=== PATIENT | male | born 1975 | race Caucasian/White ===

== ENCOUNTER → 2016-12-22 | Outpatient (REF) | payer OTHER | LOC: M LAB REF 20:05 | PROVIDERS: ATTEND Physician Assistant | DX: J02.9 Acute pharyngitis, unspecified (principal) ==

== ENCOUNTER → 2017-05-28 | Outpatient (REF) | payer OTHER | LOC: M SFHCCLAY 11:00 | PROVIDERS: ATTEND Family Medicine | DX: M1A.9XX0 Chronic gout, unspecified, without tophus (tophi) (principal); E78.2 Mixed hyperlipidemia ==

== ENCOUNTER → 2017-06-08 | Outpatient (REF) | payer OTHER ==
[2017-06-08 17:23] LABS: ALBUMIN 4.3 GM/DL (3.2-5.2); ALBUMIN/GLOBULIN RATIO 1.43 (1.00-1.93); ALKALINE PHOSPHATASE 68 U/L (45-117); ALT/SGPT 44 U/L (12-78); ANION GAP 6 MEQ/L (8-16); AST/SGOT 23 U/L (15-37); BILIRUBIN,TOTAL 0.6 MG/DL (0.2-1.0); BLOOD UREA NITROGEN 17 MG/DL (7-18); CALCIUM LEVEL 9.4 MG/DL (8.5-10.1); CARBON DIOXIDE LEVEL 30 MEQ/L (21-32); CHLORIDE LEVEL 107 MEQ/L (98-107); CHOLESTEROL LEVEL 163 MG/DL (<200); CREATININE FOR GFR 0.94 MG/DL (0.70-1.30); GLOMERULAR FILTRATION RATE > 60.0 (>60); GLUCOSE, FASTING 99 MG/DL (70-105); POTASSIUM SERUM 4.3 MEQ/L (3.5-5.1); SODIUM LEVEL 143 MEQ/L (136-145); TOTAL PROTEIN 7.3 GM/DL (6.4-8.2); TRIGLYCERIDES LEVEL 112 MG/DL (<150); URIC ACID 7.4 MG/DL (3.5-7.2)
[2017-06-08 17:58] LABS: MEAN CORPUSCULAR HEMOGLOBIN 30.5 pg (27.0-33.0); MEAN CORPUSCULAR HGB CONC 34.7 g/dl (32.0-36.5); MEAN CORPUSCULAR VOLUME 87.8 fl (80.0-96.0); RED CELL DISTRIBUTION WIDTH 12.6 % (11.5-14.5); WHITE BLOOD COUNT 5.8 K/mm3 (4.0-10.0)
== END ==
LOC: M SFHCCLAY 10:18
PROVIDERS: ATTEND Family Medicine
DX: M1A.9XX0 Chronic gout, unspecified, without tophus (tophi) (principal); E78.2 Mixed hyperlipidemia

== ENCOUNTER → 2017-09-07 | Outpatient (CLI) | payer OTHER ==
[~2017-09-07] MED LIST: PROHANCE 279.3MG/ML 15ML VIAL (A9576) As Ordered ONE; PROHANCE 279.3MG/ML 5ML VIAL (A9576) As Ordered ONE
--- NOTE | 2017-09-07 09:59 | REP ---
MRI RIGHT SHOULDER WITH AND WITHOUT CONTRAST: TECHNIQUE: Axial T2 fat sat, gradient echo, sagittal oblique T2 fat sat, coronal oblique T1, T2 fat sat. Axial T1 fat sat pre and post intravenous administration of 20 mL ProHance. Subcutaneous nodule is seen in the posterior soft tissues of the right shoulder region. This is purely fat signal and measures approximately 5.2 x 3.3 x 4.6 cm. There is no enhancement. Findings are consistent with a benign lipoma. No other cystic or solid nodule is seen in the soft tissues. There are mild hypertrophic degenerative changes of the acromioclavicular joint with a type II acromion. There is tendopathy/tendonitis of the supraspinatus tendon without evidence for a rotator cuff tendon tear. Biceps tendon is unremarkable. There is no Hill-Sachs deformity. There does appear to be a tear of the superior labrum anteriorly in the region of the biceps labral complex. There is no other evidence of a labral tear. There are tiny subchondral cystic changes in the superolateral humeral head. There is no bone marrow edema or occult fracture. There is no joint effusion. 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 Supraspinatus tendinopathy/tendonitis. There appears to be a tear of the superior labrum anteriorly in the region of the biceps labral complex. Signed by Tristan Jasso MD 09/09/2017 08:53 A
== END ==
LOC: M RAD 06:37
PROVIDERS: ATTEND Surgery
DX: M75.31 Calcific tendinitis of right shoulder (principal)
CPT/HCPCS: 73223; A9576

== ENCOUNTER → 2017-11-10 | Day surgery (SDC) | payer OTHER ==
[~2017-11-10] MED LIST changes: +KETOROLAC 60 MG/2 ML VIAL (J1885) As Ordered; +LIDOCAINE 2% INJ 100 MG/5 ML SDV (FOR ANES.) As Ordered; +MIDAZOLAM INJ 2 MG/2 ML VIAL (J2250) As Ordered; -PROHANCE 279.3MG/ML 15ML VIAL (A9576) As Ordered ONE; -PROHANCE 279.3MG/ML 5ML VIAL (A9576) As Ordered ONE; +PROPOFOL 200 MG/20 ML VIAL As Ordered; +fentaNYL 100 MCG/2 ML INJECTION (J3010) As Ordered
[2017-11-10] MEDS: LR 1,000 ML IV (07:10)
[2017-11-10] MEDS: BUPIVACAINE HCL 0.25% 30 ML VIAL As Ordered (07:30)
[2017-11-10] MEDS: LIDOCAINE W/EPINEPHRINE 1% 20ML VIAL As Ordered (07:41)
== END | disposition home or self-care (01) ==
LOC: M SDC 06:38
DX: D17.39 Benign lipomatous neoplasm of skin and subcutaneous tissue of other sites (principal)
CPT/HCPCS: 11406

== ENCOUNTER → 2018-05-03 | Outpatient (CLI) | payer OTHER | LOC: M ADAMS 11:32 | DX: M70.71 Other bursitis of hip, right hip (principal); R20.9 Unspecified disturbances of skin sensation; M70.72 Other bursitis of hip, left hip | CPT/HCPCS: 72100 ==

== ENCOUNTER → 2018-05-12 | Outpatient (REF) | payer OTHER ==
[2018-05-12 12:02] LABS: ALBUMIN/GLOBULIN RATIO 1.29 (1.00-1.93); ALKALINE PHOSPHATASE 78 U/L (45-117); ALT/SGPT 36 U/L (12-78); ANION GAP 8 MEQ/L (8-16); AST/SGOT 24 U/L (7-37); BILIRUBIN,TOTAL 0.5 MG/DL (0.2-1.0); BLOOD UREA NITROGEN 15 MG/DL (7-18); CALCIUM LEVEL 8.8 MG/DL (8.5-10.1); CARBON DIOXIDE LEVEL 29 MEQ/L (21-32); CHLORIDE LEVEL 106 MEQ/L (98-107); CHOLESTEROL LEVEL 159 MG/DL (<200); CHOLESTEROL RISK RATIO 3.533 (<5); CREATININE FOR GFR 0.91 MG/DL (0.70-1.30); GLOMERULAR FILTRATION RATE > 60.0 (>60); GLUCOSE, FASTING 100 MG/DL (70-100); HDL CHOLESTEROL 45 MG/DL (>40); NON-HDL-C 114 MG/DL; POTASSIUM SERUM 4.2 MEQ/L (3.5-5.1); SODIUM LEVEL 143 MEQ/L (136-145); TOTAL PROTEIN 7.1 GM/DL (6.4-8.2); TRIGLYCERIDES LEVEL 90 MG/DL (<150); URIC ACID 7.1 MG/DL (3.5-7.2)
[2018-05-12 12:03] LABS: ESTIMATED AVERAGE GLUCOSE 100 MG/DL (60-110); HEMOGLOBIN A1c 5.1 %
[2018-05-12 12:09] LABS: VITAMIN B12 LEVEL 462 PG/ML (247-911)
[2018-05-12 12:11] LABS: FOLATE 20.8 NG/ML (>5.4)
[2018-05-14 00:06] LABS: Lyme Disease IgG/IgM Antibodie <0.91 ISR (0.00-0.90); Lyme Disease IgM Ab Quantitati <0.80 index (0.00-0.79)
== END ==
LOC: M SFHCCLAY 09:03
DX: R20.2 Paresthesia of skin (principal); E78.2 Mixed hyperlipidemia; I10 Essential (primary) hypertension

== ENCOUNTER → 2018-06-15 | Outpatient (REF) | payer OTHER ==
[2018-06-15 14:43] LABS: RHEUMATOID FACTOR QUANT < 10.0 IU/ML (<15.0); TOTAL PROTEIN 7.6 GM/DL (6.4-8.2)
[2018-06-15 14:46] LABS: ERYTHROCYTE SEDIMENTATION RATE 5 mm/hr (0-15)
[2018-06-17 11:32] LABS: ALBUMIN 4.95 GM/DL (3.29-5.55); ALBUMIN % 65.1 % (55.8-66.1); ALPHA-1-GLOBULIN % 3.7 % (2.9-4.9); ALPHA-1-GLOBULINS 0.28 GM/DL (0.17-0.41); ALPHA-2-GLOBULINS 0.58 GM/DL (0.42-0.99); ALPHA-2-GLOBULINS % 7.6 % (7.1-11.8); BETA-1-GLOBULINS 0.45 GM/DL (0.28-0.60); BETA-1-GLOBULINS % 5.9 % (4.7-7.2); BETA-2-GLOBULINS 0.37 GM/DL (0.19-0.55); BETA-2-GLOBULINS % 4.9 % (3.2-6.5); GAMMA GLOBULIN % 12.8 % (11.1-18.8); GAMMA GLOBULINS 0.97 GM/DL (0.65-1.58)
== END ==
LOC: M LABNEURO 13:24
DX: G62.9 Polyneuropathy, unspecified (principal)

== ENCOUNTER → 2018-06-17 | Outpatient (REF) | payer OTHER ==
[2018-06-22 00:07] LABS: COPPER PLASMA 86 ug/dL (72-166); LEAD BLOOD ADULT 1 ug/dL (0-4); MERCURY LEVEL 2.8 ug/L (0.0-14.9)
== END ==
LOC: M LABNEURO 15:44
DX: G62.9 Polyneuropathy, unspecified (principal)

== ENCOUNTER → 2019-11-02 | Outpatient (REF) | payer BC ==
[2019-11-02 14:10] LABS: BLOOD UREA NITROGEN 15 MG/DL (7-18); CALCIUM LEVEL 8.9 MG/DL (8.5-10.1); CARBON DIOXIDE LEVEL 30 MEQ/L (21-32); CHLORIDE LEVEL 106 MEQ/L (98-107); CHOLESTEROL LEVEL 143 MG/DL (<200); CHOLESTEROL RISK RATIO 4.612 (<5); CREATININE FOR GFR 0.84 MG/DL (0.70-1.30); GLOMERULAR FILTRATION RATE > 60.0 (>60); GLUCOSE, FASTING 100 MG/DL (70-100); HDL CHOLESTEROL 31 MG/DL (>40); LDL CHOLESTEROL 93 MG/DL (<100); NON-HDL-C 112 MG/DL; POTASSIUM SERUM 4.3 MEQ/L (3.5-5.1); SODIUM LEVEL 141 MEQ/L (136-145); TRIGLYCERIDES LEVEL 95 MG/DL (<150)
== END ==
LOC: M SFHCADAM 08:11
PROVIDERS: ATTEND Family Medicine
DX: I10 Essential (primary) hypertension (principal); E78.2 Mixed hyperlipidemia

== ENCOUNTER → 2020-06-08 | Outpatient (REF) | payer BC ==
[2020-06-08 14:03] LABS: ALBUMIN 4.9 GM/DL (3.2-5.2); ALT/SGPT 35 U/L (12-78); BILIRUBIN,TOTAL 0.8 MG/DL (0.2-1.0); BLOOD UREA NITROGEN 26 MG/DL (7-18); CALCIUM LEVEL 9.4 MG/DL (8.5-10.1); CARBON DIOXIDE LEVEL 28 MEQ/L (21-32); CHLORIDE LEVEL 107 MEQ/L (98-107); CHOLESTEROL LEVEL 167 MG/DL (<200); CHOLESTEROL RISK RATIO 3.883 (<5); CREATININE FOR GFR 0.93 MG/DL (0.70-1.30); GLOMERULAR FILTRATION RATE > 60.0 (>60); GLUCOSE, FASTING 104 MG/DL (70-100); HDL CHOLESTEROL 43 MG/DL (>40); LDL CHOLESTEROL 104 MG/DL (<100); NON-HDL-C 124 MG/DL; POTASSIUM SERUM 4.3 MEQ/L (3.5-5.1); SODIUM LEVEL 139 MEQ/L (136-145); TOTAL PROTEIN 7.3 GM/DL (6.4-8.2); TRIGLYCERIDES LEVEL 98 MG/DL (<150); URIC ACID 7.1 MG/DL (3.5-7.2)
== END ==
LOC: M LABDRWAD 12:50
PROVIDERS: ATTEND Family Medicine
DX: M10.9 Gout, unspecified (principal); I10 Essential (primary) hypertension

== ENCOUNTER → 2021-05-02 | Outpatient (REF) | payer BC ==
[2021-05-02 12:28] LABS: ALBUMIN 4.3 GM/DL (3.2-5.2); ALT/SGPT 49 U/L (12-78); BILIRUBIN,TOTAL 0.4 MG/DL (0.2-1.0); BLOOD UREA NITROGEN 16 MG/DL (7-18); CALCIUM LEVEL 8.8 MG/DL (8.5-10.1); CARBON DIOXIDE LEVEL 28 MEQ/L (21-32); CHLORIDE LEVEL 105 MEQ/L (98-107); CHOLESTEROL LEVEL 178 MG/DL (<200); CHOLESTEROL RISK RATIO 4.564 (<5); CREATININE FOR GFR 0.86 MG/DL (0.70-1.30); GLOMERULAR FILTRATION RATE > 60.0 (>60); GLUCOSE, FASTING 98 MG/DL (70-100); HDL CHOLESTEROL 39 MG/DL (>40); LDL CHOLESTEROL 116 MG/DL (<100); NON-HDL-C 139 MG/DL; POTASSIUM SERUM 4.3 MEQ/L (3.5-5.1); SODIUM LEVEL 138 MEQ/L (136-145); TOTAL PROTEIN 7.4 GM/DL (6.4-8.2); TRIGLYCERIDES LEVEL 116 MG/DL (<150); URIC ACID 6.4 MG/DL (3.5-7.2)
== END ==
LOC: M SFHCCLAY 08:57
PROVIDERS: ATTEND Family Medicine
DX: E79.0 Hyperuricemia without signs of inflammatory arthritis and tophaceous disease (principal); I10 Essential (primary) hypertension; E78.2 Mixed hyperlipidemia

== ENCOUNTER → 2022-05-29 | Outpatient (REF) | payer BC ==
[2022-05-29 11:40] LABS: HEMATOCRIT 41.7 % (42.0-52.0); HEMOGLOBIN 14.3 g/dl (13.5-17.5); MEAN CORPUSCULAR HEMOGLOBIN 30.4 pg (27.0-33.0); MEAN CORPUSCULAR HGB CONC 34.3 g/dl (32.0-36.5); MEAN CORPUSCULAR VOLUME 88.5 fl (80.0-96.0); PLATELET COUNT, AUTOMATED 209 10^3/uL (150-450); RED BLOOD COUNT 4.71 10^6/uL (4.30-6.10); WHITE BLOOD COUNT 7.3 10^3/uL (4.0-10.0)
[2022-05-29 12:13] LABS: ALBUMIN 4.1 GM/DL (3.2-5.2); ALT/SGPT 36 U/L (12-78); BILIRUBIN,TOTAL 0.7 MG/DL (0.2-1.0); BLOOD UREA NITROGEN 13 MG/DL (7-18); CALCIUM LEVEL 9.4 MG/DL (8.5-10.1); CARBON DIOXIDE LEVEL 26 MEQ/L (21-32); CHLORIDE LEVEL 104 MEQ/L (98-107); CHOLESTEROL LEVEL 175 MG/DL (<200); CHOLESTEROL RISK RATIO 4.487 (<5); CREATININE FOR GFR 0.85 MG/DL (0.70-1.30); GLOMERULAR FILTRATION RATE > 60.0 (>60); GLUCOSE, FASTING 93 MG/DL (70-100); HDL CHOLESTEROL 39 MG/DL (>40); LDL CHOLESTEROL 113 MG/DL (<100); NON-HDL-C 136 MG/DL; SODIUM LEVEL 137 MEQ/L (136-145); TOTAL PROTEIN 7.2 GM/DL (6.4-8.2); TRIGLYCERIDES LEVEL 116 MG/DL (<150); URIC ACID 5.7 MG/DL (3.5-7.2)
== END ==
LOC: M SFHCCLAY 08:55
PROVIDERS: ATTEND Family Medicine
DX: I10 Essential (primary) hypertension (principal); E79.0 Hyperuricemia without signs of inflammatory arthritis and tophaceous disease; E78.2 Mixed hyperlipidemia

== ENCOUNTER 2023-04-22 13:09 | Day surgery (SDC) | payer BC ==
[~2023-04-22] VITALS: Ht 190.5 cm; Wt 111.9 kg
[~2023-04-22 13:09] MED LIST changes: +ALBU8.5H INH; +ALLO100T PO; -KETOROLAC 60 MG/2 ML VIAL (J1885) As Ordered; -LIDOCAINE 2% INJ 100 MG/5 ML SDV (FOR ANES.) As Ordered; +LISI10TA22 PO; -MIDAZOLAM INJ 2 MG/2 ML VIAL (J2250) As Ordered; +NS 1,000 ML IV ONE; -PROPOFOL 200 MG/20 ML VIAL As Ordered; -fentaNYL 100 MCG/2 ML INJECTION (J3010) As Ordered
[2023-04-22] MEDS ORDERED: propofoL 200 MG/20 ML VIAL As Ordered ONE ×2 (13:58→13:59)
[2023-04-22] MEDS ORDERED: LIDOCAINE 2% 100MG/5ML SDV (FOR ANES.) As Ordered ONE (14:00)
[2023-04-22 14:47] VITALS: TEMP 97.6
[2023-04-22 15:05] VITALS: BP 112/61; O2SAT 96
== END 2023-04-22 15:11 | disposition home or self-care (01) ==
LOC: M OPP 13:09
PROVIDERS: ATTEND Internal Medicine Gastroenterology
DX: Z12.11 Encounter for screening for malignant neoplasm of colon (principal); K64.0 First degree hemorrhoids; K52.89 Other specified noninfective gastroenteritis and colitis; Z79.52 Long term (current) use of systemic steroids; Z79.899 Other long term (current) drug therapy

== ENCOUNTER → 2023-05-29 | Outpatient (REF) | payer BC ==
[~2023-05-29] MED LIST changes: -NS 1,000 ML IV ONE
== END ==
LOC: M SFHCCLAY 09:12
PROVIDERS: ATTEND Family Medicine
DX: E78.2 Mixed hyperlipidemia (principal); E79.0 Hyperuricemia without signs of inflammatory arthritis and tophaceous disease; I10 Essential (primary) hypertension; Z53.9 Procedure and treatment not carried out, unspecified reason

== ENCOUNTER → 2024-05-31 | Outpatient (REF) | payer BC ==
[2024-05-31 12:19] LABS: HEMATOCRIT 42.6 % (42.0-52.0); HEMOGLOBIN 14.6 g/dl (13.5-17.5); MEAN CORPUSCULAR HEMOGLOBIN 30.2 pg (27.0-33.0); MEAN CORPUSCULAR HGB CONC 34.3 g/dl (32.0-36.5); PLATELET COUNT, AUTOMATED 207 10^3/uL (150-450); RED BLOOD COUNT 4.84 10^6/uL (4.30-6.10)
[2024-05-31 12:37] LABS: URIC ACID 7.2 MG/DL (3.7-9.2)
[2024-05-31 12:41] LABS: ALBUMIN 4.3 G/DL (3.2-5.2); ALKALINE PHOSPHATASE 84 U/L (46-116); ALT/SGPT 40 U/L (7.0-40); AST/SGOT 24 U/L (<34); BILIRUBIN,TOTAL 0.9 MG/DL (0.3-1.2); BLOOD UREA NITROGEN 14 MG/DL (9-23); CALCIUM LEVEL 9.8 MG/DL (8.5-10.1); CARBON DIOXIDE LEVEL 30 MMOL/L (20-31); CHLORIDE LEVEL 106 MMOL/L (98-107); CHOLESTEROL LEVEL 170 MG/DL (<200); CREATININE FOR GFR 0.87 MG/DL (0.70-1.30); GLOMERULAR FILTRATION RATE > 60.0 (>60); GLUCOSE, FASTING 94 MG/DL (60-100); HDL CHOLESTEROL 36.9 MG/DL (>40); LDL CHOLESTEROL 110.1 MG/DL (<100); NON-HDL-C 133.1 MG/DL; POTASSIUM SERUM 4.6 MMOL/L (3.5-5.1); SODIUM LEVEL 139 MMOL/L (136-145); TOTAL PROTEIN 7.1 G/DL (5.7-8.2); TRIGLYCERIDES LEVEL 115 MG/DL (<150)
[2024-06-01 11:51] LABS: HEPATITIS C VIRUS ABY INDEX < 0.02 INDEX (<0.8)
== END ==
LOC: M SFHCCLAY 08:44
PROVIDERS: ATTEND Family Medicine
DX: E78.2 Mixed hyperlipidemia (principal); E79.0 Hyperuricemia without signs of inflammatory arthritis and tophaceous disease; I10 Essential (primary) hypertension; Z11.59 Encounter for screening for other viral diseases

== ENCOUNTER → 2025-06-01 | Outpatient (REF) | payer BC ==
[2025-06-01 13:55] LABS: ALT/SGPT 30 U/L (7.0-40); AST/SGOT 28 U/L (<34); CALCIUM LEVEL 9.6 MG/DL (8.5-10.1); CARBON DIOXIDE LEVEL 29 MMOL/L (20-31); CHLORIDE LEVEL 105 MMOL/L (98-107); CHOLESTEROL LEVEL 148 MG/DL (<200); CHOLESTEROL RISK RATIO 3.49 (<5); CREATININE FOR GFR 0.88 MG/DL (0.70-1.30); GLOMERULAR FILTRATION RATE > 90.0 (>60); LDL CHOLESTEROL 90.4 MG/DL (<100); NON-HDL-C 105.6 MG/DL; POTASSIUM SERUM 4.3 MMOL/L (3.5-5.1); SODIUM LEVEL 143 MMOL/L (136-145); TRIGLYCERIDES LEVEL 76 MG/DL (<150)
[2025-06-01 14:03] LABS: ESTIMATED AVERAGE GLUCOSE 97.0 MG/DL (60-110)
[2025-06-02 12:09] LABS: PSA SCREENING 0.48 NG/ML (< 4.00)
== END ==
LOC: M SFHCCLAY 07:58
PROVIDERS: ATTEND Physician Assistant
DX: Z00.00 Encounter for general adult medical examination without abnormal findings (principal); E78.2 Mixed hyperlipidemia; E79.0 Hyperuricemia without signs of inflammatory arthritis and tophaceous disease; I10 Essential (primary) hypertension
CPT/HCPCS: 80053; 80061; 83036; G0103